=== PATIENT | female | born 1970 | race Caucasian/White ===

== ENCOUNTER 2020-06-09 12:57 | Emergency (ER) | payer OTHER, SELFPAY ==
[2020-06-09 13:17] VITALS: BP 117/70; PULSE 80; RESP 14; TEMP 37; O2SAT 96
--- NOTE | 2020-06-09 13:55 | ED.SKABFB ---
HPI - Skin/Abscess/Foreign Bdy General Chief complaint: Skin/Abscess/Foreign Body Stated complaint: Boil under right breast Time Seen by Provider: 06/09/20 13:45 Source: patient and RN notes reviewed Mode of arrival: ambulatory Limitations: no limitations History of Present Illness HPI narrative: 50 year old female who presents to [facility] care with complaints of 1 month duration of a small knot under the skin of her left upper abdomen. Patient states that for the past 2 days had redness, pain, yellow drainage coming from the site. She admits to squeezing the area yesterday and a small amount of yellowish pus came out of area. Patient states that she has been cleansing area with alcohol. She has a 3cm by 2cm area of redness with inner 0.5cm center of scabbing, no induration of tissue but is tender to palpation, no drainage present at this time. Patient denies any fevers, chills or sweats or any other ill symptoms. MD complaint: abscess/boil Onset (ago): month(s) Tetanus up to date: unsure Location: chest (upper right abdomen) Severity: moderate Severity scale (1-10): 8 Quality: aching Pain Consistency: intermittent Exacerbating factors: palpation Context: none Associated symptoms: denies other symptoms Treatments prior to arrival: attempted to drain pus at home and other (cleansing with alcohol) Related Data Home Medications Medication Instructions Recorded Confirmed albuterol sulfate [Proventil HFA] 2 puff INHALATION QID PRN 06/09/20 06/09/20 fluoxetine 10 mg PO DAILY 06/09/20 06/09/20 ipratropium-albuterol 3 ml INHALATION QID PRN 06/09/20 06/09/20 mometasone-formoterol [Dulera] 2 puff INHALATION Q12H 06/09/20 06/09/20 ondansetron [Zofran ODT] 4 mg PO Q6H PRN 06/09/20 06/09/20 sumatriptan succinate 100 mg PO ONCE 06/09/20 06/09/20 Allergies Allergy/AdvReac Type Severity Reaction Status Date / Time No Known Allergies Allergy Verified 06/09/20 13:32 Review of Systems Review of Systems: Narrative: CONSTITUTIONAL: Denies fever, chills, or sweats. EYES: Denies visual changes, redness, or discharge. ENT: Denies rhinorrhea, congestion, sore throat, or otalgia. CARDIOVASCULAR: Denies chest pain, palpitations, or edema. RESPIRATORY: Occasional cough denies any acute dyspnea, has history of asthma and COPD continues to use tobacco daily GASTROINTESTINAL: Denies abdominal pain, nausea, vomiting, or diarrhea. GENITOURINARY: Denies dysuria or hematuria. SKIN: Denies rash or itching.inflamed area to right upper abdomen with center lesion with scabbing MUSCULOSKELETAL: Denies back pain, joint pain, or myalgia. NEUROLOGIC: Denies headache, numbness, or weakness. PSYCHIATRIC:Positive for history of anxiety or depression. All systems reviewed & are unremarkable except as noted in HPI and below PMFSH Past Medical History Medical History (Updated 06/11/20 @ 11:14 by Malinda Ambriz NP) Asthma COPD (chronic obstructive pulmonary disease) Depression Kidney stone ureteral stent Migraines Surgical History Surgical History (Updated 06/11/20 @ 11:08 by Malinda Ambriz NP) H/O: hysterectomy History of cholecystectomy Social History Social History (Updated 06/11/20 @ 11:10 by Malinda Ambriz NP) Smoking packs per day: 1 Smoking cigarettes per day: 20.0 Years smoked: 35 Smoking pack-years: 35.00 Smoking status: Current every day smoker Alcohol intake: unknown Substance use: unknown Living arrangements: with family Gender identity (if verbalized by the patient): Female Comments At time of signature, agree with nursing past medical, surgical, social history. There is no relevant family history pertinent to the presenting complaint Exam Narrative: Exam Narrative: GENERAL: Well-appearing, well-nourished, and in no acute distress. HEAD: Normocephalic, atraumatic. EYES: PERRLA and EOMI. ENT: Nares clear, no rhinorrhea or epistaxis. Mucous membranes moist. NECK: Supple.no lymphadenopathy CHEST: Clear dec
== END 2020-06-09 14:12 | disposition home or self-care (01) ==
PROVIDERS: Emergency Provider Registered Nurse; PCP Family Medicine
DX: L02.211 Cutaneous abscess of abdominal wall (principal); F17.210 Nicotine dependence, cigarettes, uncomplicated; J44.1 Chronic obstructive pulmonary disease with (acute) exacerbation; F32.9 Major depressive disorder, single episode, unspecified
CPT/HCPCS: 99203; G0463